=== PATIENT | male | born 1940 | race Caucasian/White ===

== ENCOUNTER 2018-12-26 11:35 | Observation (INO) | payer OTHER, BC ==
--- NOTE | 2018-12-26 12:57 | EDPHY ---
H & P Stated Complaint: weakness, fatigue Time Seen by Provider: 12/26/18 12:57 HPI/ROS: CHIEF COMPLAINT: Global weakness, fatigue HISTORY OF PRESENT ILLNESS: The patient presents the ED with a 1 day history of global weakness and fatigue. The patient reports that he simply does not have the energy to stand up and walk as he normally did. His symptoms began last night. He has had a slight dry nonproductive cough over the past day. Subjective low-grade fevers. The patient denies urinary frequency or dysuria. He denies chest pain or shortness of breath. He denies acute headache. He denies history fall or trauma. He denies recent medication changes. The patient denies any inciting event to his weakness. REVIEW OF SYSTEMS: A comprehensive 10 point review of systems is otherwise negative aside from elements mentioned in the history of present illness. Source: Patient - Personal History Current Tetanus/Diphtheria Vaccine: Yes Current Tetanus Diphtheria and Acellular Pertussis (TDAP): Yes - Medical/Surgical History Hx Asthma: No Hx Chronic Respiratory Disease: No Hx Diabetes: Yes Hx Cardiac Disease: No Hx Renal Disease: No Hx Cirrhosis: No Hx Alcoholism: No Hx HIV/AIDS: No Hx Splenectomy or Spleen Trauma: No Other PMH: diabetes - Social History Smoking Status: Former smoker - Physical Exam Exam: General Appearance: Alert, no distress Eyes: Pupils equal and round no pallor or injection ENT, Mouth: Mucous membranes moist Respiratory: There are no retractions, lungs are clear to auscultation Cardiovascular: Slightly tachycardic Gastrointestinal: Abdomen is soft and nontender, no masses, bowel sounds normal Neurological: Global weakness with 5-out of 5 strength noted all 4 extremities , normal finger to nose albeit somewhat slow Skin: Warm and dry, no rashes Musculoskeletal: Neck is supple nontender Extremities: symmetrical, full range of motion Constitutional: Initial Vital Signs Temperature (C) 37.2 C 12/26/18 11:40 Heart Rate 101 H 12/26/18 11:40 Respiratory Rate 18 12/26/18 11:40 Blood Pressure 125/67 H 12/26/18 11:40 O2 Sat (%) 89 L 12/26/18 11:40 O2 Delivery Mode Room Air Allergies/Adverse Reactions: No Known Allergies Allergy (Unverified 07/20/16 15:45) Home Medications: Medication Instructions Recorded Aspirin 81mg 09/06/10 IBUPROFEN 09/06/10 Hydrocodone/APAP 5/325 [[place] 1 - 2 tab PO Q4H PRN #10 tab 07/20/16 5/325] Hydrocodone/APAP 5/325 [[place] 1 - 2 tab PO Q4H PRN #10 tab 07/20/16 5/325] Ibuprofen [Motrin (*)] 800 mg PO Q6-8PRN #30 tab 07/20/16 Ibuprofen [Motrin (*)] 800 mg PO Q6-8PRN #30 tab 07/20/16 Glipizide 12/26/18 Metformin HCl 12/26/18 Medical Decision Making - Diagnostics EKG Interpretation: EKG: Complete interpretation has been separately recorded in the [employer] archive. Summary impression: Sinus rhythm, rate 95 ED Course/Re-evaluation: Patient was noted to have a low-grade fever earlier today. He presents to the ED with generalized weakness. The patient is noted to have a nonfocal neurologic examination. The patient had an IV established. He received a L of normal saline. The patient's urinalysis does demonstrate evidence of urinary tract infection. The patient denies prior history of UTI, pyelonephritis or significant BPH. Blood cultures x2 have been ordered. A postvoid bladder residual scan has also been ordered. The patient will be treated with IV ceftriaxone. Given his difficulty walking and fall risk I do feel he should be admitted to the hospital for further evaluation and management. I re-evaluated the patient at 2:50 p.m.. He continues to be hemodynamically stable. There is no evidence of septic physiology. The patient has no clinical evidence of pyelonephritis. Consultation is made with the hospitalist service. The patient will be admitted for observation this evening. The patient's bladder scan revealed a postvoid residual of 1100 mL. A Maxwell catheter was placed. Differential Diagnosis: Differential diagnosis considered includes pyelonephritis, dehydration, metabolic abnormality, stroke, TIA - Data Points Laboratory Results: Laboratory Results 12/26/18 13:10 12/26/18 13:10 12/26/18 12/26/18 12/26/18 13:10 13:10 13:10 WBC 12.48 10^3/uL H 10^3/uL (3.80-9.50) RBC 4.33 10^6/uL L 10^6/uL (4.40-6.38) Hgb 14.0 g/dL g/dL (13.7-17.5) Hct 42.5 % % (40.0-51.0) MCV 98.2 fL fL (81.5-99.8) MCH 32.3 pg pg (27.9-34.1) MCHC 32.9 g/dL g/dL (32.4-36.7) RDW 14.0 % % (11.5-15.2) Plt Count 275 10^3/uL 10^3/uL (150-400) MPV 8.8 fL fL (8.7-11.7) Neut % (Auto) 84.0 % H % (39.3-74.2) Lymph % (Auto) 7.5 % L % (15.0-45.0) [place] % (Auto) 7.3 % % (4.5-13.0) Eos % (Auto) 0.0 % L % (0.6-7.6) Baso % (Auto) 0.5 % % (0.3-1.7) Nucleat RBC Rel Count 0.0 % % (0.0-0.2) Absolute Neuts (auto) 10.49 10^3/uL H 10^3/uL (1.70-6.50) Absolute Lymphs (auto) 0.93 10^3/uL L 10^3/uL (1.00-3.00) Absolute Monos (auto) 0.91 10^3/uL H 10^3/uL (0.30-0.80) Absolute Eos (auto) 0.00 10^3/uL L 10^3/uL (0.03-0.40) Absolute Basos (auto) 0.06 10^3/uL 10^3/uL (0.02-0.10) Absolute Nucleated RBC 0.00 10^3/uL 10^3/uL (0-0.01) Immature Gran % 0.7 % % (0.0-1.1) Immature Gran # 0.09 10^3/uL 10^3/uL (0.00-0.10) Sodium 134 mEq/L L mEq/L (135-145) Potassium 4.5 mEq/L mEq/L (3.5-5.2) Chloride 100 mEq/L mEq/L (97-110) Carbon Dioxide 21 mEq/l L mEq/l (22-31) Anion Gap 13 mEq/L mEq/L (6-14) BUN 16 mg/dL mg/dL (7-23) Creatinine 0.9 mg/dL mg/dL (0.7-1.3) Estimated GFR > 60 Glucose 210 mg/dL H mg/dL (70-100) Calcium 9.3 mg/dL mg/dL (8.5-10.4) Urine Color YELLOW Urine Appearance MODERATELY TURBID Urine pH 6.0 (5.0-7.5) Ur Specific [place] 1.010 (1.002-1.030) Urine Protein NEGATIVE (NEGATIVE) Urine Ketones TRACE H (NEGATIVE) Urine Blood NEGATIVE (NEGATIVE) Urine Nitrate NEGATIVE (NEGATIVE) Urine Bilirubin NEGATIVE (NEGATIVE) Urine Urobilinogen NEGATIVE EU EU (0.2-1.0) Ur Leukocyte Esterase 3+ H (NEGATIVE) Urine RBC 5-10 /hpf H /hpf (0-3) Urine WBC 50-182 /hpf H /hpf (0-3) Ur Epithelial Cells NONE SEEN /lpf /lpf (NONE-1+) Urine Bacteria 1+ /hpf H /hpf (NONE SEEN) Urine Mucus TRACE /lpf /lpf (NONE-1+) Urine Glucose NEGATIVE (NEGATIVE) Departure - Departure Disposition: [facility] Inpatient Acute Clinical Impression: UTI (urinary tract infection), Generalized weakness, Urinary retention Condition: Good
[2018-12-26 13:26] LABS: PLATELET COUNT 275 10^3/uL (150-400)
--- NOTE | 2018-12-26 13:27 | CPEKG ---
Test Reason : OPEN Blood Pressure : / mmHG Vent. Rate : 095 BPM Atrial Rate : 095 BPM P-R Int : 164 ms QRS Dur : 079 ms QT Int : 321 ms P-R-T Axes : 055 007 042 degrees QTc Int : 404 ms Sinus rhythm Probable left atrial enlargement Confirmed by Justin Sweeney ([id number]) on 12/26/2018 1:26:45 PM Referred By: Justin Sweeney Confirmed By:Justin Sweeney
[2018-12-26] MEDS ORDERED: ONDANSETRON DISINTEGRATING 4 MG TAB PO PRN (15:06)
[2018-12-26] MEDS ORDERED: ONDANSETRON 4 MG/2 ML VIAL IVP PRN (15:06)
[2018-12-26] MEDS ORDERED: ACETAMINOPHEN 325 MG TAB PO PRN (15:06)
[2018-12-26] MEDS ORDERED: oxyCODONE IR 5 MG TAB PO PRN (15:06)
[2018-12-26] MEDS ORDERED: ALBUTEROL 3 ML DEYVIAL IH PRN (15:06)
--- NOTE | 2018-12-26 15:11 | PDGENHP ---
History and Physical - Chief Complaint weakness - History of Present Illness 78yo M with non-insulin dependent diabetes presents with weakness. This started last night and is global. He was having trouble walking because he felt so weak but did not fall. Noticed low grade temperature so decided to come to the ED. His urinalysis is grossly infected appearing. He denies chills, rigors, dysuria , hematuria, urinary frequency, nausea, vomiting, diarrhea, flank pain. He has had a bit of a dry cough recently. Typically urinates 1-2 times/night and occasionally feels that he has to urinate but cannot. No urinary dribbling or weak stream. Never had UTI before. No recent antibiotics. He had an abdominal ultrasound in 2014 which showed a markedly distended bladder. He saw a urologist after this who performed a cystoscopy that was reportedly normal. He has not required a urinary catheter in the past. In the ED, he was given ceftriaxone and cultures were taken. He is being admitted for further care. Case discussed with ED provider Bhanu Sweeney. History Information - Allergies/Home Medication List Allergies/Adverse Reactions: No Known Allergies Allergy (Unverified 07/20/16 15:45) Home Medications: Aspirin 81mg 09/06/10 [Last Taken Unknown] IBUPROFEN 09/06/10 [Last Taken Unknown] Glipizide 12/26/18 [Last Taken Unknown] Metformin HCl 12/26/18 [Last Taken Unknown] I have personally reviewed and updated: family history, medical history, social history, surgical history - Past Medical History Additional medical history: non-insulin dependent diabetes, hyperlipidemia, bladder distention/LUTS - Surgical History Additional surgical history: right FREDY - Family History Positive for: non-pertinent - Social History Smoking Status: Former smoker Alcohol Use: Other (drinks 1-2 glasses of wine per night) Drug Use: None Additional social history: Lives with locally. Retired, previously taught political science Review of Systems Review of Systems: ROS: 10pt was reviewed & negative except for what was stated in HPI & below Physical Exam Physical Exam: Temp Pulse Resp BP Pulse Ox 37.2 C 101 H 18 125/67 H 89 L 12/26/18 11:40 12/26/18 11:40 12/26/18 11:40 12/26/18 11:40 12/26/18 11:40 Constitutional: no apparent distress, appears nourished, not in pain Eyes: PERRL, anicteric sclera, EOMI Ears, Nose, Mouth, Throat: moist mucous membranes, hearing normal, ears appear normal, no oral mucosal ulcers Cardiovascular: regular rate and rhythym, no murmur, rub, or gallop, No edema Respiratory: no respiratory distress, no rales or rhonchi, clear to auscultation Gastrointestinal: normoactive bowel sounds, soft, non-tender abdomen, tenderness (lower quadrants), distension Genitourinary: other (no flank pain) Skin: warm, normal color, no rashes or abrasions, no fluctuance, no induration, No mottled Musculoskeletal: generalized weakness Neurologic: AAOx3 Psychiatric: interacting appropriately Lab Data & Imaging Review 12/26/18 13:10 12/26/18 13:10 WBC 12.48 10^3/uL (3.80-9.50) H 12/26/18 13:10 RBC 4.33 10^6/uL (4.40-6.38) L 12/26/18 13:10 Hgb 14.0 g/dL (13.7-17.5) 12/26/18 13:10 Hct 42.5 % (40.0-51.0) 12/26/18 13:10 MCV 98.2 fL (81.5-99.8) 12/26/18 13:10 MCH 32.3 pg (27.9-34.1) 12/26/18 13:10 MCHC 32.9 g/dL (32.4-36.7) 12/26/18 13:10 RDW 14.0 % (11.5-15.2) 12/26/18 13:10 Plt Count 275 10^3/uL (150-400) 12/26/18 13:10 MPV 8.8 fL (8.7-11.7) 12/26/18 13:10 Neut % (Auto) 84.0 % (39.3-74.2) H 12/26/18 13:10 Lymph % (Auto) 7.5 % (15.0-45.0) L 12/26/18 13:10 [place] % (Auto) 7.3 % (4.5-13.0) 12/26/18 13:10 Eos % (Auto) 0.0 % (0.6-7.6) L 12/26/18 13:10 Baso % (Auto) 0.5 % (0.3-1.7) 12/26/18 13:10 Nucleat RBC Rel Count 0.0 % (0.0-0.2) 12/26/18 13:10 Absolute Neuts (auto) 10.49 10^3/uL (1.70-6.50) H 12/26/18 13:10 Absolute Lymphs (auto) 0.93 10^3/uL (1.00-3.00) L 12/26/18 13:10 Absolute Monos (auto) 0.91 10^3/uL (0.30-0.80) H 12/26/18 13:10 Absolute Eos (auto) 0.00 10^3/uL (0.03-0.40) L 12/26/18 13:10 Absolute Basos (auto) 0.06 10^3/uL (0.02-0.10) 12/26/18 13:10 Absolute Nucleated RBC 0.00 10^3/uL (0-0.01) 12/26/18 13:10 Immature Gran % 0.7 % (0.0-1.1) 12/26/18 13:10 Immature Gran # 0.09 10^3/uL (0.00-0.10) 12/26/18 13:10 Sodium 134 mEq/L (135-145) L 12/26/18 13:10 Potassium 4.5 mEq/L (3.5-5.2) 12/26/18 13:10 Chloride 100 mEq/L (97-110) 12/26/18 13:10 Carbon Dioxide 21 mEq/l (22-31) L 12/26/18 13:10 Anion Gap 13 mEq/L (6-14) 12/26/18 13:10 BUN 16 mg/dL (7-23) 12/26/18 13:10 Creatinine 0.9 mg/dL (0.7-1.3) 12/26/18 13:10 Estimated GFR > 60 12/26/18 13:10 Glucose 210 mg/dL (70-100) H 12/26/18 13:10 Calcium 9.3 mg/dL (8.5-10.4) 12/26/18 13:10 Urine Color YELLOW 12/26/18 13:10 Urine Appearance MODERATELY TURBID 12/26/18 13:10 Urine pH 6.0 (5.0-7.5) 12/26/18 13:10 Ur Specific [place] 1.010 (1.002-1.030) 12/26/18 13:10 Urine Protein NEGATIVE (NEGATIVE) 12/26/18 13:10 Urine Ketones TRACE (NEGATIVE) H 12/26/18 13:10 Urine Blood NEGATIVE (NEGATIVE) 12/26/18 13:10 Urine Nitrate NEGATIVE (NEGATIVE) 12/26/18 13:10 Urine Bilirubin NEGATIVE (NEGATIVE) 12/26/18 13:10 Urine Urobilinogen NEGATIVE EU (0.2-1.0) 12/26/18 13:10 Ur Leukocyte Esterase 3+ (NEGATIVE) H 12/26/18 13:10 Urine RBC 5-10 /hpf (0-3) H 12/26/18 13:10 Urine WBC 50-182 /hpf (0-3) H 12/26/18 13:10 Ur Epithelial Cells NONE SEEN /lpf (NONE-1+) 12/26/18 13:10 Urine Bacteria 1+ /hpf (NONE SEEN) H 12/26/18 13:10 Urine Mucus TRACE /lpf (NONE-1+) 12/26/18 13:10 Urine Glucose NEGATIVE (NEGATIVE) 12/26/18 13:10 EKG additional interpertation: ECG: NSR, normal axis and intervals, good R wave progression, borderline LA enlargement, no ischemic changes Assessment & Plan Assessment: 78yo M with non-insulin dependent diabetes presents with weakness found to have UTI. Plan: #UTI: No clinical e/o pyelonephritis. First episode, no prior culture data. - IV ceftriaxone 1g q24h - Urine and blood cultures drawn in ED #H/o bladder distention, LUTS: Risk factor for infection. - Start flomax - Check post void residual, renal US #Generalized weakness: Suspect due to above. - PT/OT #Leukocytosis: Related to urinary infection. He is not toxic appearing or septic. - Recheck in AM #Diabetes - Continue home meds, start SSI VTE ppx: low risk, SCDs Code: full Diet: carb controlled Dispo: Admit under observation
[2018-12-26] MEDS ORDERED: NS 1,000 ML IV SCH (15:15)
[2018-12-26] MEDS ORDERED: D50W 25 GM/50 ML SYR IVP PRN (15:20)
[2018-12-26] MEDS ORDERED: ACETAMINOPHEN 500 MG TAB ONE (15:33)
[2018-12-26] MEDS ORDERED: ACETAMINOPHEN 500 MG TAB PO ONE (15:35)
[2018-12-26 16:23] LABS: CREATINE KINASE 35 IU/L (0-224)
[2018-12-26] MEDS: metFORMIN HCL 500 MG TAB PO SCH ×2 (17:23→18:32)
[2018-12-26] MEDS: TAMSULOSIN HCL 0.4 MG CAP PO SCH (17:23)
[2018-12-26] MEDS: glipiZIDE 5 MG TAB PO SCH (17:23)
[2018-12-26] MEDS: INSULIN LISPRO 100 UNIT/ML SC SCH (18:10)
[2018-12-26] MEDS ORDERED: glipiZIDE 5 MG TAB PO SCH (21:00)
[2018-12-27 05:34] LABS: PLATELET COUNT 247 10^3/uL (150-400)
[2018-12-27] MEDS ORDERED: ATORVASTATIN CALCIUM 10 MG TAB PO SCH (09:00)
[2018-12-27] MEDS ORDERED: ASPIRIN 325 MG TAB PO SCH (09:00)
[2018-12-27] MEDS: INSULIN LISPRO 100 UNIT/ML SC SCH ×2 (09:01→12:57)
[2018-12-27] MEDS: glipiZIDE 5 MG TAB PO SCH (09:01)
[2018-12-27] MEDS: metFORMIN HCL 500 MG TAB PO SCH (09:01)
[2018-12-27] MEDS: TAMSULOSIN HCL 0.4 MG CAP PO SCH (09:01)
[2018-12-27 11:11] VITALS: BP 116/73
--- NOTE | 2018-12-27 11:30 | ASMTLACE ---
LACE Length of stay for Answers: 1 day current admission Acuity / Level of Answers: No Care: Did the patient have an inpatient admission? Comorbidities - select Answers: Diabetes (uncontrolled or all that apply controlled) Other Notes: HLD # of Emergency department Answers: 1-2 visits in the last 6 months Score: 4 Date Signed: 12/27/2018 11:30 AM Electronically Signed By:Silvia Saleem RN
--- NOTE | 2018-12-27 12:07 | GDS ---
[f rep st] DISCHARGE SUMMARY DISCHARGE DIAGNOSES: 1. Urinary tract infection. 2. Urinary retention, likely underlying BPH. 3. Type 2 diabetes, noninsulin dependent. 4. Hyperlipidemia. HISTORY OF PRESENT ILLNESS: A 78-year-old male with noninsulin-dependent diabetes, presented with we akness. He was having difficulty walking because he felt so weak but did not have a fall. He notice d a low-grade fever so presented to the ER. UA was positive. He had post-void residual that was 1.5 L in bladder, so Maxwell was placed. He says that this has happened in the past but was able to remov e Maxwell prior to discharge. HOSPITAL COURSE BY PROBLEM: UTI: First episode. Was treated with ceftriaxone. Will transition to Keflex. Culture is pending. Will call if not susceptible. Urinary retention: The patient is on Flomax. He wants to try without Maxwell. I advised if he does n ot urinate, will need to replace and follow up with either his urologist or PCP. Diabetes: Metformin and glipizide. Hyperlipidemia: Lipitor. Weakness: Secondary to UTI. He is on a statin, but normal CK. Can resume. DISPOSITION: Patient is stable for discharge home. NEW MEDICATIONS: Keflex. FOLLOWUP: 1. PCP. 2. Urology. LABS PENDING: Urine culture. Will call if not sensitive to Keflex. PHYSICAL EXAMINATION: VITAL SIGNS: Temperature 36.7, blood pressure 116/73, heart rate in 70s, resp irations 16, 94% on room air. GENERAL: He is well appearing, smiling, in no acute distress. HEENT: PERRLA. Moist mucous membranes. CV: Regular rate and rhythm. LUNGS: Clear. ABDOMEN: Soft, no ntender. : Maxwell in place. No CVA or suprapubic pain. NEUROLOGIC: 2 through 12 intact. PSYCH: Alert and oriented x3. Time spent on discharge greater than 30 minutes counseling patient on medications and followup plan. /[id number]/MODL
== END 2018-12-27 14:10 | disposition home or self-care (01) ==
LOC: F3E 16:37
PROVIDERS: ADMIT Internal Medicine; ATTEND Internal Medicine
PROC: 4A0D7LZ Measurement of Urinary Volume, Via Natural or Artificial Opening (ICD-10-PCS; principal; 2018-12-26)
PROC: 0T9870Z Drainage of Bilateral Ureters with Drainage Device, Via Natural or Artificial Opening (ICD-10-PCS; principal; 2018-12-26)
DX: N39.0 Urinary tract infection, site not specified (principal); R33.9 Retention of urine, unspecified; E11.9 Type 2 diabetes mellitus without complications; E78.5 Hyperlipidemia, unspecified; Z87.891 Personal history of nicotine dependence
CPT/HCPCS: 51702; 51798; 76770; 93005; 96374; 96376; 97116; 97161; 99285; G0378; J0696